=== PATIENT | male | born 1955 | race Caucasian/White ===

== ENCOUNTER 2018-06-10 22:09 | Emergency (ER) | payer MEDICARE, BC, SELFPAY ==
[2018-06-10 22:36] VITALS: BP 121/62; PULSE 70; RESP 18; TEMP 36.8; O2SAT 94
[2018-06-10 22:41] VITALS: RESP 18
--- NOTE | 2018-06-10 22:47 | ED.GENADUL_ITS ---
Disposition Clinical Impression: Syncope Disposition: HOME Condition: Good Instructions: Syncope (ED) Additional Instructions: follow up with your primary care provider within 1 week if you have chest pain, difficulty breathing or abdominal pain or severe weakness return to the emergency department Medical Decision Making - Lab Data Results reviewed for labs ordered during visit: Yes - EKG Data -: EKG Interpreted by Me EKG shows normal: sinus rhythm, intervals, QRS complexes, ST-T waves Rate: normal 06/10/18 23:02 left axis, left anterior fascicular block - Medical Decision Making pt here with syncope after bee sting. HAs no rashes and denies chest pain or pressure or gi symptoms so unlikely anaphlaxis. I suspect he had vasovagal episode and went from sitting to standing fast which could have caused his syncope. Denies chest pain or pressure at any time so doubt acs and has no tachycardia, hypoxia or evidence of dvt so doubt PE pt remains asymptomatic and hd stable. Labs unremarkable. Given lack of rash and other symptoms do not feel this is anaphylaxis. Could have mild dehydration and vasovagal. WIll d/c home, advised f/u with pcp and return preacuations given - Differential Diagnosis vasovagal, anaphylaxis, syncope History of Present Illness - General Chief complaint: Dizzy/Sync Stated complaint: AMANDA Time Seen by Provider: 06/10/18 22:10 Source: patient Mode of arrival: ambulatory Limitations: no limitations - History of Present Illness Initial comments: 63 yo male comes in with ems after she was stung by a bee or wasp per pt. HE was at his house and disturbed a nest by mistake and got stung on the chest. He got inside, sat down and stood up, felt lightheaded and lost consciousness briefly. Denies chest pain, pressure shortness of breath, n/v. HE has no complaints now. HAs clear lungs and no rashes. Complaint: bee sting Onset/Timin -: hour(s) Location: chest Radiation: non-radiation Consistency: now resolved Improves with: none Worsens with: none Associated Symptoms: denies other symptoms Treatments Prior to Arrival: none - Related Data Aspirin 81 mg PO DAILY tab-cap 01/19/18 Cholecalciferol (Vitamin D3) [Vitamin D3] 1,000 unit PO BID 01/19/18 Cinnamon Powder 01/19/18 Methylphenidate HCl [Ritalin] 10 mg PO TID tab-cap 01/19/18 Cropsey-3 Fatty Acids/Fish Oil [Cropsey 3 1,000 mg Softgel] 1 each PO BID 01/19/18 Simvastatin 40 mg PO DAILY tab-cap 01/19/18 Bisacodyl [Dulcolax] 5 mg PO ONCE #4 tab 02/17/18 Polyethylene Glycol 3350 [Miralax] 255 gm PO for colonoscopy #1 gram 02/17/18 Tumeric 1 cap PO DAILY 06/10/18 Allergies Allergy/AdvReac Type Severity Reaction Status Date / Time No Known Allergies Allergy Unverified 06/10/18 22:40 Review of Systems Constitutional: denies: chills, fever Respiratory: denies: cough, shortness of breath Cardiovascular: syncope. denies: chest pain Gastrointestinal: denies: abdominal pain, nausea, vomiting Musculoskeletal: denies: back pain Skin: denies: rash Neurological: denies: headache Comment: All other systems reviewed and negative Past Medical History - Past Medical History Medical history: hyperlipidemia - Social History Alcohol use: none Drug use: none General Exam - General Limitations: no limitations General appearance: alert, in no apparent distress - Head Head exam: Present: atraumatic - Eye Eye exam: Present: normal apperance - ENT ENT exam: Present: mucous membranes moist - Neck Neck exam: Present: normal inspection - Respiratory Respiratory exam: Present: normal lung sounds bilaterally. Absent: respiratory distress - Cardiovascular Cardiovascular Exam: Present: regular rate, normal rhythm, normal heart sounds - GI/Abdominal GI/Abdominal exam: Present: soft. Absent: tenderness - Extremities Exam Extremities exam: Present: normal inspection. Absent: pedal edema - Neurological Exam Neurological exam: Present: alert, oriented X3 - Psychiatric Psychiatric exam: Present: normal affect - Skin Skin exam: Present: warm Course Vital Signs - 24 hr 06/10/18 22:36 Temperature 98.2 F Pulse 70 Respiratory 18 Rate Blood Pressure 121/62 Pulse Oximetry 94 L
[2018-06-10 22:57] LABS: Abs Immature Grans 0.05 k/cumm (0.0-0.09); Absolute Basophil Count 0.02 k/cumm (0.0-0.2); Absolute Eosinophil Count 0.03 k/cumm (0.0-0.7); Absolute Lymphocyte Count 1.15 k/cumm (1.2-3.4); Absolute Monocyte Count 0.79 k/cumm (0.11-0.7); Basophils % 0.1; Eosinophils % 0.2; HCT 46.9 % (40.0-50.0); HGB 16.1 g/dL (13.5-17.5); Immature Grans % 0.3; Lymphocytes % 7.3; Mean Corp. HGB Concentration 34.3 g/dL (32.0-36.0); Mean Corpuscular Hemoglobin 32.3 pg (27.0-33.0); Mean Platelet Volume 10.2 fL (8.0-11.0); Neutrophils % 87.1; Platelet Count 159 x1000/uL (130-400); RBC 4.99 m/cumm (4.50-6.00); RBC Distribution Width 12.6 % (11.8-14.1); White Blood Cell Count 15.73 k/cumm (4.4-10.8)
[2018-06-10 23:12] LABS: ALT 32 U/L (12-78); AST 20 U/L (15-37); Albumin 3.7 g/dL (3.4-5.0); Alkaline Phosphatase 63 U/L (46-116); Anion Gap 6.7 mmol/L (3-11); BUN 22 mg/dL (7-18); Bilirubin, Total 2.2 mg/dL (0.2-1.0); CO2 27.3 mmol/L (21.0-32.0); CREATININE 1.31 mg/dL (0.70-1.30); Calcium 8.1 mg/dL (8.5-10.1); Chloride 106 mmol/L (98-107); Estimated GFR 54.91 (mL/min/1.73m2); Glucose 168 mg/dL (70-100); Magnesium 1.9 mg/dL (1.8-2.4); Potassium 4.4 mmol/L (3.5-5.1); Sodium 140 mmol/L (136-145); Total Protein 6.3 g/dL (6.4-8.2)
[2018-06-10 23:14] LABS: Troponin I < 0.02 ng/mL (0.00-0.06)
== END 2018-06-10 23:32 | disposition home or self-care (01) ==
PROVIDERS: Emergency Provider Emergency Medicine; PCP Family Medicine
DX: R55 Syncope and collapse (principal); T63.441A Toxic effect of venom of bees, accidental (unintentional), initial encounter; E11.9 Type 2 diabetes mellitus without complications
CPT/HCPCS: 93005; 99284 ×2; 36415; 80053; 83735; 84484; 85025; 93010

== ENCOUNTER 2018-11-21 17:05 | Outpatient (REF) | payer MEDICARE, BC, SELFPAY ==
[2018-11-21 19:20] LABS: ALT 36 U/L (12-78); AST 20 U/L (15-37); Alkaline Phosphatase 73 U/L (46-116); Anion Gap 8.8 mmol/L (3-11); BUN 28 mg/dL (7-18); CO2 30.2 mmol/L (21.0-32.0); CREATININE 1.11 mg/dL (0.70-1.30); Calcium 9.1 mg/dL (8.5-10.1); Chloride 104 mmol/L (98-107); Glucose 147 mg/dL (70-100); Potassium 4.5 mmol/L (3.5-5.1); Sodium 143 mmol/L (136-145); Total Protein 6.7 g/dL (6.4-8.2)
== END 2018-11-21 17:25 ==
LOC: NCHCN 17:05
PROVIDERS: PCP Family Medicine; Visit Provider Nurse Practitioner Family
DX: R94.4 Abnormal results of kidney function studies (principal)
CPT/HCPCS: 80053

== ENCOUNTER 2019-06-07 15:07 | Outpatient (REF) | payer MEDICARE, BC, SELFPAY ==
[2019-06-11 11:43] LABS: Lyme Ab w Rflx to Lyme Confirm Negative
== END 2019-06-07 15:27 ==
LOC: NCHCN 15:07
PROVIDERS: PCP Family Medicine; Visit Provider Family Medicine
DX: M25.50 Pain in unspecified joint (principal)
CPT/HCPCS: 86618

== ENCOUNTER 2020-08-15 10:02 | Outpatient (REF) | payer MEDICARE, BC, SELFPAY ==
[2020-08-15 18:55] LABS: Anion Gap 6.5 mmol/L (3-11); BUN 25 mg/dL (7-18); CO2 29.5 mmol/L (21.0-32.0); CREATININE 1.03 mg/dL (0.70-1.30); Calcium 8.9 mg/dL (8.5-10.1); Chloride 105 mmol/L (98-107); Glucose 139 mg/dL (74-106); Potassium 4.4 mmol/L (3.5-5.1); Sodium 141 mmol/L (136-145)
[2020-08-15 18:59] LABS: COMMENT (LAB VIEW ONLY) 36.55 mg/dL; Microalb ug/mg Crea 5.5 ug/mg Cr
[2020-08-15 19:23] LABS: Hemoglobin A1C 6.8 % (<5.7)
== END 2020-08-15 10:22 ==
LOC: NCHCN 10:02
PROVIDERS: PCP Family Medicine; Visit Provider Family Medicine
DX: E11.9 Type 2 diabetes mellitus without complications (principal); I10 Essential (primary) hypertension
CPT/HCPCS: 80048; 82043; 82570; 83036

== ENCOUNTER 2021-07-24 19:37 | Outpatient (REF) | payer MEDICARE, BC, SELFPAY ==
[2021-07-24 21:24] LABS: CREATININE 0.5 mg/dL (0.70-1.30); Calculated LDL 74 mg/dL (<100); Cholesterol 172 mg/dL (<200); HDL Cholesterol 67 mg/dL (40-60); Triglyceride 156 mg/dL (<150)
== END 2021-07-24 19:38 | disposition home or self-care (01) ==
LOC: NCHCN 19:37
PROVIDERS: PCP Family Medicine; Visit Provider Family Medicine
DX: E11.9 Type 2 diabetes mellitus without complications (principal)
CPT/HCPCS: 80061; 82565

== ENCOUNTER 2022-06-11 17:23 | Outpatient (REF) | payer MEDICARE, SELFPAY ==
[2022-06-11 21:30] LABS: Anion Gap 8.3 mmol/L (3-11); BUN 26 mg/dL (7-18); CO2 29.7 mmol/L (21.0-32.0); Calcium 9.6 mg/dL (8.5-10.1); Chloride 105 mmol/L (98-107); Glucose 126 mg/dL (74-106); Potassium 4.3 mmol/L (3.5-5.1); Sodium 143 mmol/L (136-145)
== END 2022-06-11 17:24 | disposition home or self-care (01) ==
LOC: NCHCN 17:23
PROVIDERS: PCP Family Medicine; Visit Provider Family Medicine
DX: I10 Essential (primary) hypertension (principal)
CPT/HCPCS: 80048

== ENCOUNTER 2023-09-20 09:45 | Outpatient (REF) | payer MEDICARE, SELFPAY ==
[2023-09-20 19:51] LABS: Anion Gap 8.1 mmol/L (3-11); BUN 24 mg/dL (7-18); CO2 29.9 mmol/L (21.0-32.0); CREATININE 0.9 mg/dL (0.70-1.30); Calcium 9.9 mg/dL (8.5-10.1); Chloride 104 mmol/L (98-107); Estimated GFR 91.88 (mL/min/1.73m2); Glucose 157 mg/dL (74-106); Potassium 4.1 mmol/L (3.5-5.1); Sodium 142 mmol/L (136-145)
== END 2023-09-20 09:46 ==
LOC: NCHCN 09:45
PROVIDERS: PCP Family Medicine; Visit Provider Family Medicine
DX: I10 Essential (primary) hypertension (principal)
CPT/HCPCS: 80048

== ENCOUNTER 2023-12-20 17:59 | Outpatient (REF) | payer MEDICARE, SELFPAY ==
[2023-12-20 18:57] LABS: Hemoglobin A1C 7.1 % (<5.7)
== END 2023-12-20 18:00 | disposition home or self-care (01) ==
LOC: NCHCN 17:59
PROVIDERS: PCP Family Medicine; Visit Provider Family Medicine
DX: E11.9 Type 2 diabetes mellitus without complications (principal)
CPT/HCPCS: 83036

== ENCOUNTER 2024-08-03 20:25 | Outpatient (REF) | payer MEDICARE, SELFPAY ==
[2024-08-03 19:30] LABS: COMMENT (LAB VIEW ONLY) 124.83 mg/dL; Microalb ug/mg Crea 3.9 ug/mg Cr
== END 2024-08-03 20:26 | disposition home or self-care (01) ==
LOC: NCHCN 20:25
PROVIDERS: PCP Family Medicine; Visit Provider Student in an Organized Health Care Education/Training Program
DX: E11.9 Type 2 diabetes mellitus without complications (principal)
CPT/HCPCS: 82043; 82570

== ENCOUNTER 2024-11-28 15:18 | Outpatient (REF) | payer MEDICARE, SELFPAY ==
[2024-11-28 16:47] LABS: COMMENT (LAB VIEW ONLY) 131.88 mg/dL; Microalb ug/mg Crea 4.6 ug/mg Cr
[2024-12-01 07:37] LABS: Methylphenidate Negative ng/mL (Cutoff: 10); Ritalinic Acid 629 ng/mL (Cutoff: 50)
== END 2024-11-28 15:19 | disposition home or self-care (01) ==
LOC: NCHCN 15:18
PROVIDERS: PCP Family Medicine; Visit Provider Student in an Organized Health Care Education/Training Program
DX: F90.9 Attention-deficit hyperactivity disorder, unspecified type (principal); Z79.891 Long term (current) use of opiate analgesic
CPT/HCPCS: 80360; 82043; 82570

== ENCOUNTER 2025-05-24 17:58 | Outpatient (REF) | payer MEDICARE, SELFPAY ==
[2025-05-24 21:29] LABS: Abs Immature Grans 0.02 10^3/uL (0.0-0.06); HCT 47.7 % (40.0-50.0); HGB 15.8 g/dL (13.5-17.5); Immature Grans % 0.3 %; MCH 31.9 pg (27.0-33.0); MCHC 33.1 % (32.0-36.0); MCV 96 fL (80-95); MPV 11.1 fL (8.0-11.0); Platelet Count 223 10^3/uL (130-400); RBC 4.95 10^6/uL (4.36-5.78); RDW 12.3 % (11.8-14.1); RDW-SD 43.9 fL; WBC 5.97 10^3/uL (4.4-10.8)
[2025-05-24 21:40] LABS: ALT 37 U/L (16-63); AST 19 U/L (15-37); Albumin 4.2 g/dL (3.4-5.0); Alkaline Phosphatase 67 U/L (46-116); Anion Gap 9.4 mmol/L (3-11); BUN 22 mg/dL (7-18); Bilirubin, Total 2.7 mg/dL (0.2-1.0); CO2 28.6 mmol/L (21.0-32.0); Calcium 9.0 mg/dL (8.5-10.1); Calculated LDL 70 mg/dL (<100); Chloride 105 mmol/L (98-107); Cholesterol 153 mg/dL (<200); Estimated GFR 90.74 (mL/min/1.73m2); Glucose 124 mg/dL (74-106); HDL Cholesterol 75 mg/dL (>or=40); Potassium 4.0 mmol/L (3.5-5.1); Sodium 143 mmol/L (136-145); Total Protein 6.9 g/dL (6.4-8.2); Triglyceride 42 mg/dL (<150)
== END 2025-05-24 17:59 | disposition home or self-care (01) ==
LOC: NCHCN 17:58
PROVIDERS: PCP Family Medicine; Visit Provider Student in an Organized Health Care Education/Training Program
DX: I10 Essential (primary) hypertension (principal); E78.5 Hyperlipidemia, unspecified
CPT/HCPCS: 80053; 80061; 85025